=== PATIENT | female | born 1975 | race Caucasian/White ===

== ENCOUNTER → 2016-08-01 | Outpatient (CLI) | payer BC, OTHER ==
[~2016-08-01] MED LIST: CLR10 PO; GABA-113 PO; METF500T5 PO; MULT-506 PO; ONDA4TAB46 PO; SUMA50TA15 PO; VALA500T39 PO; VITB2100; [UNRECOGNIZED DRUG - OTHER]
[2016-08-01 14:25] LABS: CHOLESTEROL/HDL RATIO 3.2
[2016-08-01 14:44] LABS: ESTIMATED AVERAGE GLUCOSE 154 mg/dl; HA1C FLAG Normal (Normal)
== END | disposition home or self-care (01) ==
LOC: C.LABMFLN 10:47
PROVIDERS: ATTEND Internal Medicine Endocrinology, Diabetes & Metabolism
DX: E10.9 Type 1 diabetes mellitus without complications (principal); E78.5 Hyperlipidemia, unspecified

== ENCOUNTER → 2016-11-21 | Outpatient (CLI) | payer BC, OTHER ==
[2016-11-21 14:48] LABS: ALT/SGPT 20 U/L (12-78); AST/SGOT 12 U/L (15-37); BLOOD UREA NITROGEN 9 mg/dl (7-18); BUN/CREATININE RATIO 12.9 (10-20); CALCIUM 9.1 mg/dl (8.5-10.1); CARBON DIOXIDE 32 mmol/L (21-32); CHLORIDE 105 mmol/L (98-107); CREATININE 0.72 mg/dl (0.60-1.20); GLUCOSE 104 mg/dl (70-99); POTASSIUM 4.3 mmol/L (3.5-5.1); SODIUM 142 mmol/L (136-145)
[2016-11-21 14:59] LABS: ALB/GLOB RATIO 0.9 (0.9-2); ALKALINE PHOSPHATASE 83 U/L (45-117); CHOLESTEROL 141 mg/dl (0-200); CHOLESTEROL/HDL RATIO 2.8; ESTIMATED AVERAGE GLUCOSE 183 mg/dl; HA1C FLAG Normal (Normal); HDL CHOLESTEROL 50 mg/dl; LDL CHOLESTEROL CALCULATED 62 mg/dl; TRIGLYCERIDES 146 mg/dl (0-150); VERY LOW DENSITY LIPOPROT CALC 29 mg/dl
== END | disposition home or self-care (01) ==
LOC: C.LAB1850 12:41
PROVIDERS: ATTEND Physician Assistant
DX: E78.5 Hyperlipidemia, unspecified (principal); E10.9 Type 1 diabetes mellitus without complications

== ENCOUNTER → 2017-11-25 | Outpatient (CLI) | payer BC, OTHER ==
[2017-11-25 18:06] LABS: ALBUMIN 3.2 gm/dl (3.4-5.0); ALT/SGPT 14 U/L (12-78); AST/SGOT 13 U/L (15-37); BLOOD UREA NITROGEN 14 mg/dl (7-18); CALCIUM 8.2 mg/dl (8.5-10.1); CARBON DIOXIDE 25 mmol/L (21-32); CHOLESTEROL 151 mg/dl (0-200); CREATININE 0.77 mg/dl (0.60-1.20); GLUCOSE 136 mg/dl (70-99); SODIUM 138 mmol/L (136-145)
[2017-11-25 18:17] LABS: ALKALINE PHOSPHATASE 70 U/L (45-117); LDL CHOLESTEROL CALCULATED 75 mg/dl
== END | disposition home or self-care (01) ==
LOC: C.LABMFLN 12:14
PROVIDERS: ATTEND Physician Assistant
DX: E10.9 Type 1 diabetes mellitus without complications (principal)

== ENCOUNTER 2018-10-06 09:06 | Inpatient (IN) ==
[2018-10-06] MEDS ORDERED: OPTIRAY 320 125ml IV PRN (09:23)
--- NOTE | 2018-10-06 09:34 | CT Scan Report ---
CT head/brain wo con CLINICAL HISTORY: 43 years-old Female with Stroke evaluation . Acute strokelike symptoms TECHNIQUE: Multiple axial CT images of the head were obtained without contrast. A dose lowering tech nique was utilized adhering to the principles of ALARA. CT DOSE: 537.48 mGy.cm COMPARISON: CT head 01/28/2013. FINDINGS: No acute intracranial hemorrhage, midline shift, intracranial mass, hydrocephalus, territorial ischem ia or abnormal extra-axial collection. The calvarium is intact. Moderate mucosal thickening about the left maxillary sinus with mild mucosa l thickening of the right maxillary sinus and mild to moderate mucosal thickening of the ethmoid air cells. Mastoid air cells are clear. Soft tissues are unremarkable. A tube noted about the right naris . IMPRESSION: No acute intracranial abnormality. The above report was generated using voice recognition software. It may contain grammatical, syntax o r spelling errors. Electronically signed by: Darius Butts M.D. 10/06/2018 9:32 AM
--- NOTE | 2018-10-06 09:44 | CT Scan Report ---
HEAD & NECK CTA HISTORY: Altered mental status. TECHNIQUE: Multiaxial CT images of the head were performed following the intravenous administration o f contrast to evaluate the major cerebral vessels. Multiaxial CT images of the neck were also perform ed following the intravenous administration of contrast to evaluate the major cervical vessels. Maxim um intensity projection images were also obtained. A dose lowering technique was utilized adhering to the principles of ALARA. COMPARISON: Head CT 10/06/2018. FINDINGS: A right-sided nasopharyngeal airway is noted. Visualized intracranial internal carotid arteries, dist al vertebral arteries, and basilar artery are widely patent. There is no significant stenosis, occlus ion, or aneurysm seen within the bilateral ACAs, MCAs, or pit shovel operator. The major dural venous sinuses are pa tent. Moderate mucosal thickening within the left maxillary sinus and left ethmoid air cells. The aortic arch and proximal great vessels are widely patent. There is no significant stenosis, occ lusion, or dissection identified within the bilateral common carotid, internal carotid, or vertebral arteries. Patchy and linear densities within the upper lobes favor atelectasis. IMPRESSION: 1. No significant stenosis, occlusion, or aneurysm within the [place]. 2. No significant stenosis, occlusion, or dissection identified within the carotid or vertebral arter ies. 3. Patchy and linear densities within the upper lobes are nonspecific but favor atelectasis. A pneumo linnea could also have a similar appearance. 4. Sinus disease as described above. Electronically signed by: Jersey Schuler M.D. 10/06/2018 9:43 AM
--- NOTE | 2018-10-06 09:44 | CT Scan Report ---
HEAD & NECK CTA HISTORY: Altered mental status. TECHNIQUE: Multiaxial CT images of the head were performed following the intravenous administration o f contrast to evaluate the major cerebral vessels. Multiaxial CT images of the neck were also perform ed following the intravenous administration of contrast to evaluate the major cervical vessels. Maxim um intensity projection images were also obtained. A dose lowering technique was utilized adhering to the principles of ALARA. COMPARISON: Head CT 10/06/2018. FINDINGS: A right-sided nasopharyngeal airway is noted. Visualized intracranial internal carotid arteries, dist al vertebral arteries, and basilar artery are widely patent. There is no significant stenosis, occlus ion, or aneurysm seen within the bilateral ACAs, MCAs, or senior brand manager. The major dural venous sinuses are pa tent. Moderate mucosal thickening within the left maxillary sinus and left ethmoid air cells. The aortic arch and proximal great vessels are widely patent. There is no significant stenosis, occ lusion, or dissection identified within the bilateral common carotid, internal carotid, or vertebral arteries. Patchy and linear densities within the upper lobes favor atelectasis. IMPRESSION: 1. No significant stenosis, occlusion, or aneurysm within the [place]. 2. No significant stenosis, occlusion, or dissection identified within the carotid or vertebral arter ies. 3. Patchy and linear densities within the upper lobes are nonspecific but favor atelectasis. A pneumo linnea could also have a similar appearance. 4. Sinus disease as described above. Electronically signed by: Jersey Schuler M.D. 10/06/2018 9:43 AM
[2018-10-06 09:53] LABS: iSTAT Creatinine 0.6 mg/dl (0.6-1.3); iSTAT Hemoglobin 10.5 g/dl (12.0-16.0); iSTAT Ionized Calcium 1.14 mmol/l (1.12-1.32); iSTAT Potassium 4.1 mEq/L (3.3-5.0)
[2018-10-06 09:54] LABS: Basophils # (auto) 0.01 K/uL (0-0.2); Basophils % (auto) 0.2 %; Eosinophils # (auto) 0.11 K/uL (0-0.5); Eosinophils % (auto) 2.5 %; Hematocrit (blood only) 34.4 % (37-47); Hemoglobin 11.6 g/dL (12.0-16.0); Immature Granulocytes # (auto) 0.03 K/uL (0.00-0.02); Immature Granulocytes % (auto) 0.7 %; Lymphocytes # (auto) 1.94 K/uL (1.2-3.4); Lymphocytes % (auto) 43.7 %; Mean Corpuscular Hgb Conc 33.7 g/dL (32-36); Mean Corpuscular Volume 88.9 fL (80-100); Mean Platelet Volume 8.9 fL (7.4-10.4); Monocytes # (auto) 0.39 K/uL (0.11-0.59); Monocytes % (auto) 8.8 %; Neutrophils # (auto) 1.96 K/uL (1.4-6.5); Neutrophils % (auto) 44.1 %; Platelet Count 197 K/uL (130-400); RDW Standard Deviation 38.4 fL (36.4-46.3); Red Blood Count 3.87 M/uL (4.2-5.4); White Blood Count 4.44 K/uL (4.8-10.8)
[2018-10-06 10:06] LABS: Partial Thromboplastin Ratio 0.9; Partial Thromboplastin Time 23.9 Seconds (21.0-31.0); Prothrombin Time 10.3 Seconds (9.0-12.0)
[2018-10-06 10:10] LABS: HCO3 ABG 26 mmol/L (19-24); Oxygen Saturation ABG 99.7 % (90-95); PCO2 ABG 51 mmHg (35-46); PO2 ABG 245 mm/Hg (80-95); pH ABG 7.32 (7.35-7.45)
[2018-10-06 10:11] LABS: Alanine Aminotransferase 11 U/L (12-78); Albumin Level 2.6 gm/dl (3.4-5.0); Aspartate Aminotransferase 7 U/L (15-37); Blood Urea Nitrogen 12 mg/dl (7-18); Calcium 7.6 mg/dl (8.5-10.1); Carbon Dioxide 29 mmol/L (21-32); Chloride 106 mmol/L (98-107); Creatinine Clr Calc Pharmacy 117.6 ml/min; Est GFR (African American) 128.2; Est GFR (Non-African American) 110.6; Glucose 152 mg/dl (70-99); Magnesium 1.9 mg/dl (1.8-2.4); Potassium 4.1 mmol/L (3.5-5.1); Sodium 138 mmol/L (136-145)
[2018-10-06 10:11] LABS: Allen Test Pos (Pos)
[2018-10-06 10:16] LABS: Albumin Globulin Ratio 0.8 (0.9-2); Alkaline Phosphatase 61 U/L (45-117); Bilirubin,Total 0.2 mg/dl (0.2-1); Globulin 3.2 gm/dl (2.5-4.0); Total Protein 5.8 gm/dl (6.4-8.2); Troponin I < 0.015 ng/ml (0-0.045)
[2018-10-06] MEDS ORDERED: ASPIRIN 300 MG SUPP PR ONE (10:23)
--- NOTE | 2018-10-06 10:51 | XRay Report ---
XR chest 1V portable HISTORY: 43 years-old Female altered loc acutely altered mental status COMPARISON: [facility] 01/04/2014 TECHNIQUE: Portable AP view the chest FINDINGS: Cardiac silhouette appears be upper limits of normal in size. Lungs are hypoinflated with bronchovasc ular crowding. Mild right hemidiaphragm elevation with subsegmental bibasilar opacities. Bilateral in terstitial coarsening. There is no pneumothorax or large pleural effusion. There is a linear metallic density structure overlying the medial right lung base which may be external to the patient. Bones o f the chest appear grossly intact. IMPRESSION: 1. Hypoinflation with bronchovascular crowding and mild right hemidiaphragmatic elevation. 2. Bibasilar opacities are suggestive of atelectasis, pneumonitis could have a similar appearance. The above report was generated using voice recognition software. It may contain grammatical, syntax o r spelling errors. Electronically signed by: Darius Butts M.D. 10/06/2018 10:49 AM
--- NOTE | 2018-10-06 11:38 | History & Physical Report ---
Date of Service October 06, 2018 Assessment & Plan (1) Hypoxia: (2) Unresponsive: Pt presented to ER from outpatient surgical center for apnea and unresponsiveness. Patient had right carpal tunnel surgery today. It is reported she had propofol, Versed, fentanyl and woke up after procedure and then became apneic and unresponsive. Reported was given Narcan without any improvement. Reported that patient then had SBP 200 and was given labetalol and had BSG of 160s and was given half amp of dextrose and sent to ER. Upon ER arrival patient was unresponsive to painful stimuli, on nonrebreather with respirations of 16, and sats dropped to 80s off of nonrebreather with respirations of 9, BP: 137/70, P: 87. CTA head and neck unremarkable. Stroke alert was called and tele neurologist did not think was acute stroke and recommended aspirin and Keppra. ?medication induced, post ictal, conversion disorder, stroke -pt was initially to go to ICU, however upon ER transfer to ICU pt now alert and on 2L NC with sats 99% -tele to monitor -pending drug screen -MRI brain -initially npo with unresponsiveness, will monitor and if continued alertness will start on diet -Neurology consult appreciate recommendations -may need to consider psych consult (3) Seizure disorder: (4) Pseudoseizure: Outpatient records reviewed and report patient with diagnosis of pseudoseizures on previous neuro workup. Patient's reports now patient [place] and patient is on Vimpat. thinks last seizure was at least 6 months ago -monitor -seizure precautions -pending depakote level -monitor pt's alertness, if continued alert will resume home meds (5) Diabetes: A1c: 8.0 on 11/2017. On Lantus and Novolog sliding scale at home Reported pt BSG after surgery this morning was in 160's and she was given 1/2 amp dextrose at that time -Novolog Lantus sliding scale per protocol -A1c in am (6) Dyslipidemia: -if continued alertness will resume home meds (7) Recurrent headache: On Depakote for history of headaches -pending depakote level DVT Prophylaxis -SCDs Follows with Dr Kisha Ford for routine care Pt was seen with Dr Reynaga. See addendum History of Present Illness Chief Complaint: Unresponsive Primary Care Provider: Faheem Beard Pt is 43 y/o F with PMH diabetes on insulin, dyslipidemia, seizure disorder, pseudoseizure, recurrent headaches presented to ER from outpatient surgical center for apnea and unresponsiveness. Patient had right carpal tunnel surgery today. There is reported she had propofol, Versed, fentanyl. Reported patient woke up after procedure and then became apneic and unresponsive. Reported was given Narcan without any improvement. Reported that patient then had SBP 200 and was given labetalol and had BSG of 160s and was given half amp of dextrose and sent to ER. In ER arrival patient was unresponsive to painful stimuli, on nonrebreather with respirations of 16, and sats dropped to 80s off of nonrebreather with respirations of 9, BP: 137/70, P: 87. CTA head and neck unremarkable. Stroke alert was called and tele neurologist did not think was acute stroke and recommended aspirin and Keppra. Patient's reports that he believes patient has been taking her medications. He states he thinks his last seizure episode was approximately 6 months ago. He reports her normal seizure episodes are where she blacks out and has movements of body and last for approximately 20 minutes without loss control of bowel or bladder. He states in the past when this is occurred he has pinched her and she has responded to painful stimuli. Outpatient records reviewed and report patient with diagnosis of pseudoseizures on previous neuro workup. She is on Depakote for history of headaches. Patient's reports now patient follows with neurologist in [place]. [place] and patient is on Vimpat. Assessment reports approximately 1 month ago patient had outpatient surgery for left carpal tunnel and did not have any problems with anesthesia. He does not think that she drinks alcohol or uses any other drugs other than her prescriptions. He thinks that she took her morning medicines today. denies any recent illnesses or injuries with pt. Allergies Allergy/AdvReac Type Severity Reaction Status Date / Time niacin Allergy Unknown HIVES Verified 10/06/18 10:33 nortriptyline Allergy Unknown UNKOWN Verified 10/06/18 10:33 RXN, FROM PREOP ORDER aspirin AdvReac Unknown bloody nose Verified 10/06/18 10:33 Home Medications Home Medications Medication Instructions Recorded Confirmed Type atorvastatin 10 mg PO DAILY 10/06/18 10/06/18 History divalproex 500 mg PO BID 10/06/18 10/06/18 History esomeprazole magnesium [Nexium] 40 mg PO DAILY 10/06/18 10/06/18 History gabapentin 600 mg PO UD 10/06/18 10/06/18 History insulin aspart U-100 [Novolog 1 unit SUBCUT UD 10/06/18 10/06/18 History Flexpen U-100 Insulin] lacosamide [Vimpat] 150 mg PO BID 10/06/18 10/06/18 History loratadine 10 mg PO DAILY 10/06/18 10/06/18 History multivitamin 1 tab PO DAILY 10/06/18 10/06/18 History ondansetron HCl [Zofran] 4 mg PO DIRECTED PRN 10/06/18 10/06/18 History riboflavin (vitamin B2) 1,200 mg PO DAILY 10/06/18 10/06/18 History rizatriptan [Maxalt] 10 mg PO DIRECTED 10/06/18 10/06/18 History valacyclovir 500 mg PO BID 10/06/18 10/06/18 History Past Med/Surg History Family History Other Colorectal cancer Diabetes Hypertension Social History Preferred Language: [place] Communication Ability: Effective [place] Bench Required: No Beliefs That Will Affect Care: None Current Living Situation: Spouse and Family Other Information That Helps Us Care for You: No Feels Safe at Home: Yes Safety Concerns: Feels Safe At This Time Smoking Status: Former smoker Hx Alcohol Use: No Hx Substance Use: No Review of Systems Unobtainable due to reduced consciousness Physical Exam Vital Signs (Past 24 Hours): Last Vital Signs Temp 36.5 C 10/06/18 09:09 Pulse 88 10/06/18 10:52 Resp 16 10/06/18 10:52 BP 136/84 10/06/18 10:41 Pulse Ox 100 10/06/18 10:52 Physical Exam: General: obese, pt unresponsive Head: normocephalic, atraumatic Eyes: PERRL, does not blink with touching of eyelids, manual opening of eyelid eye movement with downward gaze then random eye movements. conjunctiva non- injected, anicteric ENT: normal inspection external ears, nose, mucous membranes moist Neck: supple, trachea midline Lungs: clear, on non-breather with respirations 14, O2 sats: 100% CV: RRR, no murmur Abd: normal BS, soft, protuberant Ext: no cyanosis or erythema Neuro: pt unresponsive to painful stimuli of sternal rub, pinching of fingernail beds and toenail beds Skin: warm, dry Results & Data Laboratory Results Short CBC 10/06/18 Range/Units 09:38 WBC 4.44 L (4.8-10.8) K/uL Hgb 11.6 L (12.0-16.0) g/dL Hct 34.4 L (37-47) % Plt Count 197 (130-400) K/uL BMP 10/06/18 09:38 Sodium 138 Potassium 4.1 Chloride 106 Carbon Dioxide 29 BUN 12 Creatinine 0.63 Glucose 152 H Calcium 7.6 L Cardiac Enzymes 10/06/18 Range/Units 09:38 Troponin I < 0.015 (0-0.045) ng/ml Liver Function 10/06/18 Range/Units 09:38 Total Bilirubin 0.2 (0.2-1) mg/dl AST 7 L (15-37) U/L ALT 11 L (12-78) U/L Alkaline Phosphatase 61 (45-117) U/L Albumin 2.6 L (3.4-5.0) gm/dl Diagnostic Findings CXR: IMPRESSION: 1. Hypoinflation with bronchovascular crowding and mild right hemidiaphragmatic elevation. 2. Bibasilar opacities are suggestive of atelectasis, pneumonitis could have a similar appearance. CT HEAD: IMPRESSION: No acute intracranial abnormality. CTA HEAD & NECK: IMPRESSION: 1. No significant stenosis, occlusion, or aneurysm within the [place]. 2. No significant stenosis, occlusion, or dissection identified within the c arotid or vertebral arteries. 3. Patchy and linear densities within the upper lobes are nonspecific but favor atelectasis. A pneumonia could also have a similar appearance. 4. Sinus disease as described above. ECG Rate (beats per minute): 81 Rhythm: normal sinus Supervising Physician Co-Signing Physician Notes Patient is a 43-year-old female with multiple comorbidities including seizure disorder/pseudoseizures and other problems presented with respiratory failure and altered mental status after having right carpal tunnel surgery today. On presentation patient presented with hypertensive urgency while in ED which improved. Patient initially was unresponsive to sternal rub, pain stimulus. She was requiring nonrebreather to maintain her saturation. Patient was evaluated by telemetry stroke neurologist who believed that patient does not seem to have an acute stroke. He recommended aspirin and Keppra. CT head, head and neck CTA are noncontributory. Patient had her last seizure episode 6 months ago as per the family. Please review HPI for complete presentation. On exam patient is unresponsive, no normocephalic atraumatic, does not respond to pain, verbal stimulus. Currently on nonrebreather, lungs are clear to auscultation,S1, S2, no murmur, abdomen is soft nontender, unable to perform complete neuro exam secondary to patient's mental status, extremities no pedal edema, cyanosis. Patient is admitted for management of Altered Mental Status. DD: PostIctal, Medication induced, Conversion disorder. Plan to get MRI brain, Neuro Checks, NPO for now, Respiratory support, seizure precautions, Neurology Consulted. Check Depakote levels. Hold all sedative meds as able. Aspiration/Fall precautions. Low threshold for Intubation. Further management based on MRI results. I personally reviewed the record. Patient is interviewed and examined at bedside. Patient's care is coordinated with Racquel Harley DECORATIVE ENGRAVER. Please refer to the documentation above for details of patient's presentation and for discussion of other issues.
--- NOTE | 2018-10-06 13:54 | Critical Care Consultation ---
Date of Consultation October 06, 2018 Assessment & Plan (1) Pseudoseizure: Impression: 1. Pseudoseizure versus conversion syndrome, patient does not have any clinical evidence of seizure or postictal syndrome, her bicarb has been maintained, no witnessed convulsion, and her altered mental status resolved spontaneously, I would favor conversion syndrome. Unfortunately there is no specific treatment for it. And the patient cannot control it spontaneously. 2. Diabetes, glucose controlled. #3 Postop Right Carpal Tunnel surgery, improving as expected. Plan: 1. Continue her current medications including Depakote and Lamictal. 2. Start oral intake. 3. No need for BiPAP during the daytime. 4. wean the oxygen to off as possible. 5. continue with CPAP/BiPAP nocturnally. 6. Pain control, caution with narcotics. 7. DVT prophylaxis. 8. Ambulate the patient if possible. 9. Discussed with the staff and with the ER staff, and details. 10. Transfer to [facility]. Thank you for the kind referral, critical care time spent with the patient was 45 minutes. History of Present Illness Reason for Consultation: Obtundation Requesting Physician: Dr. Allred Attending Physician: Hue López MD History of Present Illness Dear Dr. Allred: Thank you for your kind referral Mrs. Almanzar to critical care service. This is 43-year-old female with history of diabetes, morbid obesity, dyslipidemia, seizure disorder, pseudoseizure as well, presented to the surgical center for right-sided carpal tunnel surgery. The patient postop was difficult to arouse, she received during her procedure propofol and fentanyl according to the records, and the patient was transferred to the ED for further monitoring. In the ED, after discussion with Dr. Medina, the patient apparently was unable to be aroused. Underwent extensive workup including her glucose level which was normal, ABG was acceptable and did not show significant hypercapnia. The patient was continued to be difficult to arouse. EKG, imaging did not reveal any abnormality, the patient was stroke alert as well and was not deemed to have any cerebrovascular event. When I interviewed the patient after she is being admitted to the ICU, she started waking up, following commands answering question, she did have a nasal trumpet which I removed, place her only on nasal cannula, she does not recall the event, she did not have any events in the past similar to this but she did not have any surgery with deep sedation. She was able to move her 4 extremities although she did that earlier. The patient was able to follow commands, she appeared to be able to protect her airways and she was placed only on nasal cannula. She is fully awake. She has been taken Depakote and Lamictal for seizure, it was unsure whether it is seizure or pseudoseizure. Allergies Allergy/AdvReac Type Severity Reaction Status Date / Time niacin Allergy Unknown HIVES Verified 10/06/18 10:33 nortriptyline Allergy Unknown UNKOWN Verified 10/06/18 10:33 RXN, FROM PREOP ORDER aspirin AdvReac Unknown bloody nose Verified 10/06/18 10:33 Home Medications Home Medications Medication Instructions Recorded Confirmed Type atorvastatin 10 mg PO DAILY 10/06/18 10/06/18 History divalproex 500 mg PO BID 10/06/18 10/06/18 History esomeprazole magnesium [Nexium] 40 mg PO DAILY 10/06/18 10/06/18 History gabapentin 600 mg PO UD 10/06/18 10/06/18 History insulin aspart U-100 [Novolog 1 unit SUBCUT UD 10/06/18 10/06/18 History Flexpen U-100 Insulin] lacosamide [Vimpat] 150 mg PO BID 10/06/18 10/06/18 History loratadine 10 mg PO DAILY 10/06/18 10/06/18 History multivitamin 1 tab PO DAILY 10/06/18 10/06/18 History ondansetron HCl [Zofran] 4 mg PO DIRECTED PRN 10/06/18 10/06/18 History riboflavin (vitamin B2) 1,200 mg PO DAILY 10/06/18 10/06/18 History rizatriptan [Maxalt] 10 mg PO DIRECTED 10/06/18 10/06/18 History valacyclovir 500 mg PO BID 10/06/18 10/06/18 History Patient History Medical History Dyslipidemia (Chronic) Diabetes (Chronic) Recurrent headache (Chronic) Seizure disorder (Chronic) Pseudoseizure (Chronic) Surgical History History of hernia repair (Chronic) History of tubal ligation (Chronic) History of carpal tunnel surgery (Chronic) Family History Other Colorectal cancer Diabetes Hypertension Social History Preferred Language: [place] Communication Ability: Effective Bankruptcy Manager Required: No Beliefs That Will Affect Care: None Current Living Situation: Spouse and Family Other Information That Helps Us Care for You: No Feels Safe at Home: Yes Safety Concerns: Feels Safe At This Time Smoking Status: Former smoker Hx Alcohol Use: No Hx Substance Use: No Review of Systems Review of system was limited, however the patient chief complaint was pain in her right wrist which is understandable postop. The rest of her symptoms were unremarkable, denies any shortness of breath, no chest pain, no sputum production, no cough, no abdominal pain, no nausea, does not feel any pain in her joints, appears to be in a good mood, and denies any visual disturbances. Does not have any tremor or shakiness. No neuro symptoms. Physical Exam Vital Signs (Past 24 Hours): Last Vital Signs Temp 36.9 C 10/06/18 12:46 Pulse 85 10/06/18 12:46 Resp 21 10/06/18 12:46 BP 169/65 H 10/06/18 12:46 Pulse Ox 99 10/06/18 12:46 Physical Exam: Patient vital signs are stable, S1-S2 regular rate and rhythm, her O2 saturation is 96%, no JVD, lungs are clear, the patient is morbidly obese, abdomen is benign, no edema in the periphery, no rash, no oral lesion, nasal trumpet was removed without any difficulty, neurologically she is intact following commands moving 4 extremities, right wrist postop surgically wrapped, no evidence of swelling or induration at this site. Results & Data Laboratory Results Labs were reviewed personally which showed stable CBC, ABG was 7.32/50 1245, and the BMP is normal, glucose is normal LFTs are normal. Diagnostic Findings Which showed bibasilar atelectasis. Negative head CT for intracranial catastrophe. No evidence of occlusion in the [place].
[2018-10-06] MEDS ORDERED: GLUCAGON FOR INJ 1 MG VIAL SQ PRN (14:04)
[2018-10-06] MEDS ORDERED: GLUCOSE 10 TABS/TUBE PO PRN (14:04)
[2018-10-06] MEDS ORDERED: DEXTROSE 50% 50 ML SYRINGE IV PRN (14:04)
[2018-10-06] MEDS ORDERED: INSULIN GLARGINE SOLOSTAR 100 UNITS/ML 3 ML PEN SC SCH (14:04)
[2018-10-06] MEDS ORDERED: CARBOHYDRATES FOR HYPOGLYCEMIA PO PRN (14:04)
[2018-10-06] MEDS ORDERED: GLUCOSE 40% GEL 15 GM TUBE PO PRN (14:04)
--- NOTE | 2018-10-06 14:19 | Neurology Consultation ---
Date of Consultation October 06, 2018 Assessment & Plan (1) Altered mental status: 1. depakote level ordered but not resulted 2. continue Vimpat 150 mg BID depakote 500 mg BID, also taking Gabepentin 600 mg as ordered 3. seizure vs pseudo seizure vs reaction to anaesthesia 4. PT/OT for any discharge needed 5. discharge to home and close follow up with Dr Bajwa -neurology [place] 6. a febrile - lung finding likely atelectasis 7. will be available for any further questions concerns. Supervising Physician Co-Signing Physician Notes I have seen and discussed above patient with Dr Delvis Stiles. Patient was seen and examined. at bedside. Patient admitted for decreased LOC s/p CTS surgery earlier today. She recieved Propofol, Versed, and Fentanyl. Patient awake and alert on examine. Comprehension intact. EOMI. Pupils equal and reactive. Tongue midline no abrasion. Speech is clear. On 2L NC. Appears comfortable. Per chart review patient followed with [facility] for history of non epileptic seizures and migriane headaches. Now follows with outside neurologist. Is on Vimpat 150 mg BID, Depakote 500 mg BID, and Neurontin 600/600/1200 daily. Unclear etiology of spell earlier. Possibly secondary to sedative agents used during surgery. Patient improved. Recommend to continue home medications. No further neurology work up necessary. Ok to discharge when stable from medical standpoint. Patient reports having follow up with her Neurologist (Dr. Bajwa) tomorrow at 10 AM. History of Present Illness Reason for Consultation: unresponsiveness, hx pseudoseizures Requesting Physician: Hue López MD Attending Physician: Hue López MD History of Present Illness Divine is a 43 year old female PMH DM on insulin, HLD, seizure disorder, pseudoseizure, migraines. Was brought to ED from outpatient surgical center for apnea and unresponsiveness. According to she was there for R carpal tunnel surgery. She was given propofol, Versed, fentanyl. He was told the surgery went well and then she was apneic and unresponsive Narcan was given without improvement. She had a SBP 200 and was given labetalol and had BSG of 160s and was given half amp of dextrose and sent to ER. She was unresponsive to painful stimuli, on nonrebreather with respirations of 16, and sats dropped to 80s off of nonrebreather with respirations of 9, BP: 137/70, P: 87. CTA head and neck unremarkable. Stroke alert was called but recommended aspirin and Keppra. She states she has been taking her medications and reports the last seizure episode was approximately 6 months ago. He reports her normal seizure episodes are where she blacks out and has movements of body and last for approximately 20 seconds. She states sometimes she bites her tongue and sometimes she wets herself. She has a diagnosis of pseudoseizures on previous neuro workup. She is on Depakote for history of headaches. Patient's reports now patient follows with neurologist in [place] Dr. Long and patient is on Vimpat. Assessment reports approximately 1 month ago patient had outpatient surgery for left carpal tunnel and did not have any problems with anesthesia. She states she had a migraine last night but took tylenol and woke up without one this am. She states she has a current headache but she has not taken anything for it. They are pounding and last 1-2 hours. She sometimes takes Maxalt for the migriane. She is a non smoker minimal EtoH use, 2 adult children. Allergies Allergy/AdvReac Type Severity Reaction Status Date / Time niacin Allergy Unknown HIVES Verified 10/06/18 10:33 nortriptyline Allergy Unknown UNKOWN Verified 10/06/18 10:33 RXN, FROM PREOP ORDER aspirin AdvReac Unknown bloody nose Verified 10/06/18 10:33 Home Medications Home Medications Medication Instructions Recorded Confirmed Type atorvastatin 10 mg PO DAILY 10/06/18 10/06/18 History divalproex 500 mg PO BID 10/06/18 10/06/18 History esomeprazole magnesium [Nexium] 40 mg PO DAILY 10/06/18 10/06/18 History gabapentin 600 mg PO UD 10/06/18 10/06/18 History insulin aspart U-100 [Novolog 1 unit SUBCUT UD 10/06/18 10/06/18 History Flexpen U-100 Insulin] insulin glargine 55 unit SUBCUT HS 10/06/18 10/06/18 History lacosamide [Vimpat] 150 mg PO BID 10/06/18 10/06/18 History loratadine 10 mg PO DAILY 10/06/18 10/06/18 History multivitamin 1 tab PO DAILY 10/06/18 10/06/18 History ondansetron HCl [Zofran] 4 mg PO DIRECTED PRN 10/06/18 10/06/18 History riboflavin (vitamin B2) 1,200 mg PO DAILY 10/06/18 10/06/18 History rizatriptan [Maxalt] 10 mg PO DIRECTED 10/06/18 10/06/18 History valacyclovir 500 mg PO BID 10/06/18 10/06/18 History Patient History Medical History Dyslipidemia (Chronic) Diabetes (Chronic) Recurrent headache (Chronic) Seizure disorder (Chronic) Pseudoseizure (Chronic) Surgical History History of hernia repair (Chronic) History of tubal ligation (Chronic) History of carpal tunnel surgery (Chronic) Family History Other Colorectal cancer Diabetes Hypertension Social History Preferred Language: Divehi Communication Ability: Effective Correspondent Required: No Beliefs That Will Affect Care: None Current Living Situation: Spouse and Family Other Information That Helps Us Care for You: No Feels Safe at Home: Yes Safety Concerns: Feels Safe At This Time Smoking Status: Former smoker Hx Alcohol Use: No Hx Substance Use: No Physical Exam Vital Signs (Past 24 Hours): Last Vital Signs Temp 36.9 C 10/06/18 12:46 Pulse 85 10/06/18 12:46 Resp 21 10/06/18 12:46 BP 169/65 H 10/06/18 12:46 Pulse Ox 99 10/06/18 12:46 Physical Exam: Constitutional: appearance over nourished Ears, Nose, Mouth and Throat: mucous membranes moist, no injection and skin normal, eyes normal Cardiovascular: normal S-1 and S-2 and regular rate and rhythm Respiratory: clear to auscultation (CTA) and no rales, ronchi or wheeze Musculoskeletal: no peripheral edema Skin: no stigmata of neurocutaneous disease noted and normal and intact Eyes: extraocular muscles intact (EOMI) and pupils equal, round and reactive to light (PERRL) NEUROLOGIC EXAMINATION: Mental status: Alert and interactive Oriented to full date and location Oriented to person Speech fluent with no evidence of aphasia Cranial Nerves smile eye brow raise symmetric tongue midline with no abrasions or lacerations Reflexes: Deep tendon reflexes were symmetrical and graded 2/5. Sensory: intact to light and cool touch Coordination: finger to nose with no bi pass Gait/Stance: Posture normal lying in bed, blind drawn lights out Motor: Negative for pronator drift of out stretched arms with eyes closed. 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, left no tested due to recent surgery CTS, hip flex plantar flex ext 5/5 bilaterally Results & Data Laboratory Results Abnormal lab results 10/06/18 10/06/18 10/06/18 Range/Units 09:12 09:38 09:38 WBC 4.44 L (4.8-10.8) K/uL RBC 3.87 L (4.2-5.4) M/uL Hgb 11.6 L (12.0-16.0) g/dL POC Hgb (12.0-16.0) g/dl Hct 34.4 L (37-47) % POC Hct (37-47) % Immature Gran # (Auto) 0.03 H (0.00-0.02) K/uL ABG pH (7.35-7.45) ABG pCO2 (35-46) mmHg ABG pO2 (80-95) mm/Hg ABG HCO3 (19-24) mmol/L ABG O2 Saturation (90-95) % POC Chloride (101-112) mEq/L Glucose 152 H (70-99) mg/dl POC Glucose 152 H (70-99) POC Glucose (other) (70-99) mg/dl Calcium 7.6 L (8.5-10.1) mg/dl AST 7 L (15-37) U/L ALT 11 L (12-78) U/L Total Protein 5.8 L (6.4-8.2) gm/dl Albumin 2.6 L (3.4-5.0) gm/dl Albumin/Globulin Ratio 0.8 L (0.9-2) 10/06/18 10/06/18 10/06/18 Range/Units 09:40 09:59 12:33 WBC (4.8-10.8) K/uL RBC (4.2-5.4) M/uL Hgb (12.0-16.0) g/dL POC Hgb 10.5 L (12.0-16.0) g/dl Hct (37-47) % POC Hct 31 L (37-47) % Immature Gran # (Auto) (0.00-0.02) K/uL ABG pH 7.32 L (7.35-7.45) ABG pCO2 51 H (35-46) mmHg ABG pO2 245 H (80-95) mm/Hg ABG HCO3 26 H (19-24) mmol/L ABG O2 Saturation 99.7 H (90-95) % POC Chloride 99 L (101-112) mEq/L Glucose (70-99) mg/dl POC Glucose 187 H (70-99) POC Glucose (other) 153 H (70-99) mg/dl Calcium (8.5-10.1) mg/dl AST (15-37) U/L ALT (12-78) U/L Total Protein (6.4-8.2) gm/dl Albumin (3.4-5.0) gm/dl Albumin/Globulin Ratio (0.9-2) 10/06/ Range/Units 14:22 WBC (4.8-10.8) K/uL RBC (4.2-5.4) M/uL Hgb (12.0-16.0) g/dL POC Hgb (12.0-16.0) g/dl Hct (37-47) % POC Hct (37-47) % Immature Gran # (Auto) (0.00-0.02) K/uL ABG pH (7.35-7.45) ABG pCO2 (35-46) mmHg ABG pO2 (80-95) mm/Hg ABG HCO3 (19-24) mmol/L ABG O2 Saturation (90-95) % POC Chloride (101-112) mEq/L Glucose (70-99) mg/dl POC Glucose 193 H (70-99) POC Glucose (other) (70-99) mg/dl Calcium (8.5-10.1) mg/dl AST (15-37) U/L ALT (12-78) U/L Total Protein (6.4-8.2) gm/dl Albumin (3.4-5.0) gm/dl Albumin/Globulin Ratio (0.9-2) Diagnostic Findings CT head- No acute intracranial abnormality. CTA head and neck -No significant stenosis, occlusion, or aneurysm within the [place]. No significant stenosis, occlusion, or dissection identified within the carotid or vertebral arteries. Patchy and linear densities within the upper lobes are nonspecific but favor atelectasis. A pneumonia could also have a similar appearance. Sinus disease as described above. CXR-Hypoinflation with bronchovascular crowding and mild right hemidiaphragmatic elevation. Bibasilar opacities are suggestive of atelectasis, pneumonitis could have a similar appearance. (1) Altered mental status Altered mental status type: unspecified Qualified Code(s): R41.82 - Altered mental status, unspecified
--- NOTE | 2018-10-06 15:15 | Emergency Department Note ---
Entered by Briana Turner acting as a scribe for Manuel Medina MD History of Present Illness General Chief complaint: Unresponsive Stated complaint: unresponsive Source: family, EMS and other (nursing staff) Limitations: altered mental status (unresponsiveness) History of Present Illness Provider complaint: unresponsiveness Onset (ago): hour(s) (today) Location: left and right Quality: + other (unresponsiveness) The patient is a 43 year old female who presents to the Emergency Room with unresponsiveness today. Limited HPI secondary to unresponsiveness. Per nursing staff, the patient had carpel tunnel surgery this morning but was then unresponsive. Nursing staff states that the surgery went well. The patient had Propofol, Fentanyl, and Versed. Nursing staff states that the patient also had Narcan. EMS states that the patient woke up then went unresponsive and was apneic for 10 minutes. EMS states that the patient's BSG was 166. Nursing staff states that the patient has a history of diabetes and a seizure disorder but has not had a seizure for over 6 months. Per nursing staff, the patient has not been incontinent. Her family states that the patient has had "blackout out" spells before and had her license suspended for a year but then was doing well. Her family states that the patient usually does not stop breathing with seizures. Home Medications Home Medications Medication Instructions Recorded Confirmed Type atorvastatin 10 mg PO DAILY 10/06/18 10/06/18 History divalproex 500 mg PO BID 10/06/18 10/06/18 History esomeprazole magnesium [Nexium] 40 mg PO DAILY 10/06/18 10/06/18 History gabapentin 600 mg PO UD 10/06/18 10/06/18 History insulin aspart U-100 [Novolog 1 unit SUBCUT UD 10/06/18 10/06/18 History Flexpen U-100 Insulin] insulin glargine 55 unit SUBCUT HS 10/06/18 10/06/18 History lacosamide [Vimpat] 150 mg PO BID 10/06/18 10/06/18 History loratadine 10 mg PO DAILY 10/06/18 10/06/18 History multivitamin 1 tab PO DAILY 10/06/18 10/06/18 History ondansetron HCl [Zofran] 4 mg PO DIRECTED PRN 10/06/18 10/06/18 History riboflavin (vitamin B2) 1,200 mg PO DAILY 10/06/18 10/06/18 History rizatriptan [Maxalt] 10 mg PO DIRECTED 10/06/18 10/06/18 History valacyclovir 500 mg PO BID 10/06/18 10/06/18 History Allergies Allergy/AdvReac Type Severity Reaction Status Date / Time niacin Allergy Unknown HIVES Verified 10/06/18 10:33 nortriptyline Allergy Unknown UNKOWN Verified 10/06/18 10:33 RXN, FROM PREOP ORDER aspirin AdvReac Unknown bloody nose Verified 10/06/18 10:33 Past Med/Surg History Medical History Dyslipidemia (Chronic) Diabetes (Chronic) Recurrent headache (Chronic) Seizure disorder (Chronic) Pseudoseizure (Chronic) Surgical History History of hernia repair (Chronic) History of tubal ligation (Chronic) History of carpal tunnel surgery (Chronic) Family History Other Colorectal cancer Diabetes Hypertension Social History Preferred Language: Swedish Communication Ability: Effective 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 Physical Exam Vital Signs Vital Signs - 24 hr 10/06/18 09:09 10/06/18 09:10 10/06/18 09:31 Temperature 36.5 C Temperature Source Oral Sepsis Recent Fever Within 48 Hours No Sepsis Action Taken by Nursing No Action Required Pulse Rate 87 87 Pulse Rate [Apical] Pulse Rate from SpO2 Sensor 88 Pulse Rhythm [Apical] Pulse Strength [Apical] Respiratory Rate 9 L 22 150 H Respiratory Effort / Characteristics Respiratory Depth Shallow Blood Pressure 137/70 Blood Pressure [Left Arm] Blood Pressure Mean 92 Blood Pressure Mean [Left Arm] Pulse Oximetry 85 L 85 L Oxygen Delivery Method Room Air Oxygen Flow Rate 10/06/18 09:33 10/06/18 09:40 10/06/18 09:47 Temperature Temperature Source Sepsis Recent Fever Within 48 Hours Sepsis Action Taken by Nursing Pulse Rate 87 86 87 Pulse Rate [Apical] 86 Pulse Rate from SpO2 Sensor 87 87 87 Pulse Rhythm [Apical] Regular Pulse Strength [Apical] Normal Respiratory Rate 17 19 15 Respiratory Effort / Characteristics Non-Labored Spontaneous Respiratory Depth Shallow Blood Pressure 137/70 135/74 Blood Pressure [Left Arm] 137/70 Blood Pressure Mean 92 94 Blood Pressure Mean [Left Arm] 92 Pulse Oximetry 85 L 99 99 Oxygen Delivery Method Non-rebreather Oxygen Flow Rate 15 10/06/18 09:50 10/06/18 09:52 10/06/18 10:00 Temperature Temperature Source Sepsis Recent Fever Within 48 Hours Sepsis Action Taken by Nursing Pulse Rate 88 88 87 Pulse Rate [Apical] Pulse Rate from SpO2 Sensor 87 88 88 Pulse Rhythm [Apical] Pulse Strength [Apical] Respiratory Rate 21 20 18 Respiratory Effort / Characteristics Respiratory Depth Blood Pressure 124/78 Blood Pressure [Left Arm] Blood Pressure Mean 93 Blood Pressure Mean [Left Arm] Pulse Oximetry 100 100 100 Oxygen Delivery Method Oxygen Flow Rate 10/06/18 10:02 10/06/18 10:10 10/06/18 10:11 Temperature Temperature Source Sepsis Recent Fever Within 48 Hours Sepsis Action Taken by Nursing Pulse Rate 86 88 94 H Pulse Rate [Apical] Pulse Rate from SpO2 Sensor 86 88 94 H Pulse Rhythm [Apical] Pulse Strength [Apical] Respiratory Rate 15 15 16 Respiratory Effort / Characteristics Respiratory Depth Blood Pressure 136/72 143/90 H Blood Pressure [Left Arm] Blood Pressure Mean 93 107 Blood Pressure Mean [Left Arm] Pulse Oximetry 100 99 100 Oxygen Delivery Method Oxygen Flow Rate 10/06/18 10:12 10/06/18 10:20 10/06/18 10:22 Temperature Temperature Source Sepsis Recent Fever Within 48 Hours Sepsis Action Taken by Nursing Pulse Rate 89 87 85 Pulse Rate [Apical] Pulse Rate from SpO2 Sensor 89 87 86 Pulse Rhythm [Apical] Pulse Strength [Apical] Respiratory Rate 14 18 17 Respiratory Effort / Characteristics Respiratory Depth Blood Pressure 113/90 Blood Pressure [Left Arm] Blood Pressure Mean 97 Blood Pressure Mean [Left Arm] Pulse Oximetry 100 100 99 Oxygen Delivery Method Oxygen Flow Rate 10/06/18 10:30 10/06/18 10:40 10/06/18 10:41 Temperature Temperature Source Sepsis Recent Fever Within 48 Hours Sepsis Action Taken by Nursing Pulse Rate 89 91 H 89 Pulse Rate [Apical] Pulse Rate from SpO2 Sensor 89 91 H 89 Pulse Rhythm [Apical] Pulse Strength [Apical] Respiratory Rate 17 17 14 Respiratory Effort / Characteristics Respiratory Depth Blood Pressure 136/84 Blood Pressure [Left Arm] Blood Pressure Mean 101 Blood Pressure Mean [Left Arm] Pulse Oximetry 100 99 99 Oxygen Delivery Method Oxygen Flow Rate 10/06/18 10:50 10/06/18 10:52 10/06/18 10:53 Temperature Temperature Source Sepsis Recent Fever Within 48 Hours Sepsis Action Taken by Nursing Pulse Rate 87 88 86 Pulse Rate [Apical] Pulse Rate from SpO2 Sensor 87 88 86 Pulse Rhythm [Apical] Pulse Strength [Apical] Respiratory Rate 16 16 15 Respiratory Effort / Characteristics Respiratory Depth Blood Pressure Blood Pressure [Left Arm] Blood Pressure Mean 114 Blood Pressure Mean [Left Arm] Pulse Oximetry 100 100 100 Oxygen Delivery Method Non-rebreather Oxygen Flow Rate 15 10/06/18 10:57 10/06/18 11:00 10/06/18 11:10 Temperature Temperature Source Sepsis Recent Fever Within 48 Hours Sepsis Action Taken by Nursing Pulse Rate 91 H 85 95 H Pulse Rate [Apical] Pulse Rate from SpO2 Sensor 91 H 85 95 H Pulse Rhythm [Apical] Pulse Strength [Apical] Respiratory Rate 18 15 23 Respiratory Effort / Characteristics Respiratory Depth Blood Pressure 137/82 156/108 H Blood Pressure [Left Arm] Blood Pressure Mean 100 124 Blood Pressure Mean [Left Arm] Pulse Oximetry 100 99 97 Oxygen Delivery Method Non-rebreather Non-rebreather Non-rebreather Oxygen Flow Rate 15 15 15 10/06/18 11:30 10/06/18 11:31 10/06/18 12:46 Temperature 36.9 C Temperature Source Oral Sepsis Recent Fever Within 48 Hours Sepsis Action Taken by Nursing Pulse Rate 94 H 91 H Pulse Rate [Apical] 85 Pulse Rate from SpO2 Sensor 94 H 91 H Pulse Rhythm [Apical] Pulse Strength [Apical] Respiratory Rate 20 16 21 Respiratory Effort / Characteristics Respiratory Depth Blood Pressure 144/90 H Blood Pressure [Left Arm] 169/65 H Blood Pressure Mean 108 Blood Pressure Mean [Left Arm] 99 Pulse Oximetry 100 100 99 Oxygen Delivery Method Non-rebreather Non-rebreather Nasal Cannula Oxygen Flow Rate 15 15 2 General: Altered middle-aged female, wearing supplemental Oxygen. HEENT: Normal cephalic atraumatic. When I open her eyes she looks downward. Oropharynx is pink with moist mucous membranes. No swelling of the mouth lips or tongue. Neck: Supple with a midline trachea. No meningeal signs or stiffness, no JVD or bruits. No Stridor. Chest: Mid 90s on supplemental Oxygen. Clear to auscultation bilaterally. No wheezes or rhonchi. No increased work of breathing. Heart: regular rate and rhythm. Abdomen: Soft nontender, nondistended without rebound guarding or rigidity. Extremities: No cyanosis clubbing or edema. No calf tenderness or assymetry Spine/Back. Non tender to palpation. No CVA tenderness Skin: Good turgor without rashes. Neurologic exam: No response to painful stimuli. Course 0907: Past medical records reviewed. The patient was evaluated in room A1, and a complete history and physical examination were performed. 0921: I discussed the patient's case with Dr. Owens Neurology who said that at this point we need to see what the CT shows and no TPA at this point. 0958: I discussed the patient's case with Gay Arroyo who will evaluate the patient for further management. 1013: They are doing a neuro exam on the patient. 1014: I discussed the patient's case with Dr. Lynn who said that this could be conversion disorder from the Propofol. 1021: I spoke with Dr. Lofton who said to give the patient aspirin and Keppra. 1044: Gay Livingston PA-C is going to see the patient. 1234: Dr. Lynn informed me that the patient is awake and talking now. Consultations Consultation #1: Dr. Owens Neurology Time: 09:21 Consultation #2: Gay Arroyo Time: 09:58 Consultation #3: Dr. Lynn Time: 10:14 Administered Medications Discontinued Medications Aspirin (Aspirin) 300 mg VT ONE ONE Stop: 10/06/18 10:24 Last Admin: 10/06/18 10:43 Dose: 300 mg Documented by: [id number] Levetiracetam 1,000 mg/ (Dextrose) 110 mls @ 440 mls/hr IV NOW STA Stop: 10/06/18 10:37 Last Infusion: 10/06/18 11:09 Dose: 0 mls/hr Documented by: [id number] Admin: 10/06/18 10:43 Dose: 440 mls/hr Documented by: [id number] Ioversol (Optiray 320 125ml) 119 ml IV ONCE PRN PRN Reason: Interaction Checking Stop: 10/10/18 09:22 Last Admin: 10/06/18 09:24 Dose: 119 ml Documented by: [id number] Medical Decision Making Differential Diagnosis The patient is a 43 year old female who presents to the ED with unre sponsiveness. Differential diagnosis includes CVA, medication overdose/side effects, seizure, infection, and anoxic brain injury. Medical Records Attestation: I reviewed the patient's medical records. Home Medications Current Medication List: was personally reviewed by me Laboratory Data Attestation: I reviewed the patient's lab results. Result diagrams: 10/06/18 09:38 10/06/18 09:38 Lab Results 10/06/18 10/06/18 10/06/18 Range/Units 09:12 09:38 09:38 WBC 4.44 L (4.8-10.8) K/uL RBC 3.87 L (4.2-5.4) M/uL Hgb 11.6 L (12.0-16.0) g/dL POC Hgb (12.0-16.0) g/dl Hct 34.4 L (37-47) % POC Hct (37-47) % MCV 88.9 (80-100) fL MCH 30.0 (25-34) pg MCHC 33.7 (32-36) g/dL RDW Std Deviation 38.4 (36.4-46.3) fL RDW Coeff of Kalina 12.0 (11.5-14.5) % Plt Count 197 (130-400) K/uL MPV 8.9 (7.4-10.4) fL Immature Gran % (Auto) 0.7 % Neut % (Auto) 44.1 % Lymph % (Auto) 43.7 % [place] % (Auto) 8.8 % Eos % (Auto) 2.5 % Baso % (Auto) 0.2 % Immature Gran # (Auto) 0.03 H (0.00-0.02) K/uL Neut # (Auto) 1.96 (1.4-6.5) K/uL Lymph # (Auto) 1.94 (1.2-3.4) K/uL [place] # (Auto) 0.39 (0.11-0.59) K/uL Eos # (Auto) 0.11 (0-0.5) K/uL Baso # (Auto) 0.01 (0-0.2) K/uL PT 10.3 (9.0-12.0) Seconds INR 1.0 (0.9-1.1) APTT 23.9 (21.0-31.0) Seconds PTT Ratio 0.9 ABG pH (7.35-7.45) ABG pCO2 (35-46) mmHg ABG pO2 (80-95) mm/Hg ABG HCO3 (19-24) mmol/L ABG O2 Saturation (90-95) % ABG Base Excess (-9-1.8) mEq/L Chris Test (Pos) Barometric Pressure mm/Hg Oxygen Given POC Sodium (135-144) mEq/L Sodium (136-145) mmol/L POC Potassium (3.3-5.0) mEq/L Potassium (3.5-5.1) mmol/L POC Chloride (101-112) mEq/L Chloride (98-107) mmol/L Carbon Dioxide (21-32) mmol/L POC Total CO2 (24-31) mEq/l Anion Gap (3-11) POC Anion Gap (16-25) mmol/L POC BUN (7-18) mg/dl BUN (7-18) mg/dl Creatinine (0.6-1.2) mg/dl POC Creatinine (0.6-1.3) mg/dl Est Cr Clr Drug Dosing ml/min Est GFR ( Amer) Est GFR (Non-Af Amer) BUN/Creatinine Ratio (10-20) Glucose (70-99) mg/dl POC Glucose 152 H (70-99) POC Glucose (other) (70-99) mg/dl Calcium (8.5-10.1) mg/dl POC Ioniz Calcium [place] (1.12-1.32) mmol/l Magnesium (1.8-2.4) mg/dl Total Bilirubin (0.2-1) mg/dl AST (15-37) U/L ALT (12-78) U/L Alkaline Phosphatase (45-117) U/L POC Troponin I (0-0.045) ng/ml Troponin I (0-0.045) ng/ml Total Protein (6.4-8.2) gm/dl Albumin (3.4-5.0) gm/dl Globulin (2.5-4.0) gm/dl Albumin/Globulin Ratio (0.9-2) Blood Type Antibody Screen 10/06/18 10/06/18 10/06/18 Range/Units 09:38 09:38 09:40 WBC (4.8-10.8) K/uL RBC (4.2-5.4) M/uL Hgb (12.0-16.0) g/dL POC Hgb 10.5 L (12.0-16.0) g/dl Hct (37-47) % POC Hct 31 L (37-47) % MCV (80-100) fL MCH (25-34) pg MCHC (32-36) g/dL RDW Std Deviation (36.4-46.3) fL RDW Coeff of Kalina (11.5-14.5) % Plt Count (130-400) K/uL MPV (7.4-10.4) fL Immature Gran % (Auto) % Neut % (Auto) % Lymph % (Auto) % [place] % (Auto) % Eos % (Auto) % Baso % (Auto) % Immature Gran # (Auto) (0.00-0.02) K/uL Neut # (Auto) (1.4-6.5) K/uL Lymph # (Auto) (1.2-3.4) K/uL [place] # (Auto) (0.11-0.59) K/uL Eos # (Auto) (0-0.5) K/uL Baso # (Auto) (0-0.2) K/uL PT (9.0-12.0) Seconds INR (0.9-1.1) APTT (21.0-31.0) Seconds PTT Ratio ABG pH (7.35-7.45) ABG pCO2 (35-46) mmHg ABG pO2 (80-95) mm/Hg ABG HCO3 (19-24) mmol/L ABG O2 Saturation (90-95) % ABG Base Excess (-9-1.8) mEq/L Chris Test (Pos) Barometric Pressure mm/Hg Oxygen Given POC Sodium 137 (135-144) mEq/L Sodium 138 (136-145) mmol/L POC Potassium 4.1 (3.3-5.0) mEq/L Potassium 4.1 (3.5-5.1) mmol/L POC Chloride 99 L (101-112) mEq/L Chloride 106 (98-107) mmol/L Carbon Dioxide 29 (21-32) mmol/L POC Total CO2 25 (24-31) mEq/l Anion Gap 3.0 (3-11) POC Anion Gap 18.0 (16-25) mmol/L POC BUN 11 (7-18) mg/dl BUN 12 (7-18) mg/dl Creatinine 0.63 (0.6-1.2) mg/dl POC Creatinine 0.6 (0.6-1.3) mg/dl Est Cr Clr Drug Dosing 117.6 ml/min Est GFR ( Amer) 128.2 Est GFR (Non-Af Amer) 110.6 BUN/Creatinine Ratio 19.0 (10-20) Glucose 152 H (70-99) mg/dl POC Glucose (70-99) POC Glucose (other) 153 H (70-99) mg/dl Calcium 7.6 L (8.5-10.1) mg/dl POC Ioniz Calcium [place] 1.14 (1.12-1.32) mmol/l Magnesium 1.9 (1.8-2.4) mg/dl Total Bilirubin 0.2 (0.2-1) mg/dl AST 7 L (15-37) U/L ALT 11 L (12-78) U/L Alkaline Phosphatase 61 (45-117) U/L POC Troponin I (0-0.045) ng/ml Troponin I < 0.015 (0-0.045) ng/ml Total Protein 5.8 L (6.4-8.2) gm/dl Albumin 2.6 L (3.4-5.0) gm/dl Globulin 3.2 (2.5-4.0) gm/dl Albumin/Globulin Ratio 0.8 L (0.9-2) Blood Type A Positive Antibody Screen NEGATIVE 10/06/18 10/06/18 10/06/18 Range/Units 09:41 09:59 12:33 WBC (4.8-10.8) K/uL RBC (4.2-5.4) M/uL Hgb (12.0-16.0) g/dL POC Hgb (12.0-16.0) g/dl Hct (37-47) % POC Hct (37-47) % MCV (80-100) fL MCH (25-34) pg MCHC (32-36) g/dL RDW Std Deviation (36.4-46.3) fL RDW Coeff of Kalina (11.5-14.5) % Plt Count (130-400) K/uL MPV (7.4-10.4) fL Immature Gran % (Auto) % Neut % (Auto) % Lymph % (Auto) % [place] % (Auto) % Eos % (Auto) % Baso % (Auto) % Immature Gran # (Auto) (0.00-0.02) K/uL Neut # (Auto) (1.4-6.5) K/uL Lymph # (Auto) (1.2-3.4) K/uL [place] # (Auto) (0.11-0.59) K/uL Eos # (Auto) (0-0.5) K/uL Baso # (Auto) (0-0.2) K/uL PT (9.0-12.0) Seconds INR (0.9-1.1) APTT (21.0-31.0) Seconds PTT Ratio ABG pH 7.32 L (7.35-7.45) ABG pCO2 51 H (35-46) mmHg ABG pO2 245 H (80-95) mm/Hg ABG HCO3 26 H (19-24) mmol/L ABG O2 Saturation 99.7 H (90-95) % ABG Base Excess -0.8 (-9-1.8) mEq/L Chris Test Pos (Pos) Barometric Pressure 739.1 mm/Hg Oxygen Given 15L POC Sodium (135-144) mEq/L Sodium (136-145) mmol/L POC Potassium (3.3-5.0) mEq/L Potassium (3.5-5.1) mmol/L POC Chloride (101-112) mEq/L Chloride (98-107) mmol/L Carbon Dioxide (21-32) mmol/L POC Total CO2 (24-31) mEq/l Anion Gap (3-11) POC Anion Gap (16-25) mmol/L POC BUN (7-18) mg/dl BUN (7-18) mg/dl Creatinine (0.6-1.2) mg/dl POC Creatinine (0.6-1.3) mg/dl Est Cr Clr Drug Dosing ml/min Est GFR ( Amer) Est GFR (Non-Af Amer) BUN/Creatinine Ratio (10-20) Glucose (70-99) mg/dl POC Glucose 187 H (70-99) POC Glucose (other) (70-99) mg/dl Calcium (8.5-10.1) mg/dl POC Ioniz Calcium [place] (1.12-1.32) mmol/l Magnesium (1.8-2.4) mg/dl Total Bilirubin (0.2-1) mg/dl AST (15-37) U/L ALT (12-78) U/L Alkaline Phosphatase (45-117) U/L POC Troponin I < 0.03 (0-0.045) ng/ml Troponin I (0-0.045) ng/ml Total Protein (6.4-8.2) gm/dl Albumin (3.4-5.0) gm/dl Globulin (2.5-4.0) gm/dl Albumin/Globulin Ratio (0.9-2) Blood Type Antibody Screen 10/06/18 Range/Units 14:22 WBC (4.8-10.8) K/uL RBC (4.2-5.4) M/uL Hgb (12.0-16.0) g/dL POC Hgb (12.0-16.0) g/dl Hct (37-47) % POC Hct (37-47) % MCV (80-100) fL MCH (25-34) pg MCHC (32-36) g/dL RDW Std Deviation (36.4-46.3) fL RDW Coeff of Kalina (11.5-14.5) % Plt Count (130-400) K/uL MPV (7.4-10.4) fL Immature Gran % (Auto) % Neut % (Auto) % Lymph % (Auto) % [place] % (Auto) % Eos % (Auto) % Baso % (Auto) % Immature Gran # (Auto) (0.00-0.02) K/uL Neut # (Auto) (1.4-6.5) K/uL Lymph # (Auto) (1.2-3.4) K/uL [place] # (Auto) (0.11-0.59) K/uL Eos # (Auto) (0-0.5) K/uL Baso # (Auto) (0-0.2) K/uL PT (9.0-12.0) Seconds INR (0.9-1.1) APTT (21.0-31.0) Seconds PTT Ratio ABG pH (7.35-7.45) ABG pCO2 (35-46) mmHg ABG pO2 (80-95) mm/Hg ABG HCO3 (19-24) mmol/L ABG O2 Saturation (90-95) % ABG Base Excess (-9-1.8) mEq/L Chris Test (Pos) Barometric Pressure mm/Hg Oxygen Given POC Sodium (135-144) mEq/L Sodium (136-145) mmol/L POC Potassium (3.3-5.0) mEq/L Potassium (3.5-5.1) mmol/L POC Chloride (101-112) mEq/L Chloride (98-107) mmol/L Carbon Dioxide (21-32) mmol/L POC Total CO2 (24-31) mEq/l Anion Gap (3-11) POC Anion Gap (16-25) mmol/L POC BUN (7-18) mg/dl BUN (7-18) mg/dl Creatinine (0.6-1.2) mg/dl POC Creatinine (0.6-1.3) mg/dl Est Cr Clr Drug Dosing ml/min Est GFR ( Amer) Est GFR (Non-Af Amer) BUN/Creatinine Ratio (10-20) Glucose (70-99) mg/dl POC Glucose 193 H (70-99) POC Glucose (other) (70-99) mg/dl Calcium (8.5-10.1) mg/dl POC Ioniz Calcium [place] (1.12-1.32) mmol/l Magnesium (1.8-2.4) mg/dl Total Bilirubin (0.2-1) mg/dl AST (15-37) U/L ALT (12-78) U/L Alkaline Phosphatase (45-117) U/L POC Troponin I (0-0.045) ng/ml Troponin I (0-0.045) ng/ml Total Protein (6.4-8.2) gm/dl Albumin (3.4-5.0) gm/dl Globulin (2.5-4.0) gm/dl Albumin/Globulin Ratio (0.9-2) Blood Type Antibody Screen Imaging Data Radiologist's Impression: Radiology results as stated below per my review and the radiologist's interpretation: HEAD & NECK CTA HISTORY: Altered mental status. TECHNIQUE: Multiaxial CT images of the head were performed following the intravenous administration of contrast to evaluate the major cerebral vessels. Multiaxial CT images of the neck were also performed following the intravenous administration of contrast to evaluate the major cervical vessels. Maximum intensity projection images were also obtained. A dose lowering technique was utilized adhering to the principles of ALARA. COMPARISON: Head CT 10/06/2018. FINDINGS: A right-sided nasopharyngeal airway is noted. Visualized intracranial internal carotid arteries, distal vertebral arteries, and basilar artery are widely pa tent. There is no significant stenosis, occlusion, or aneurysm seen within the bilateral ACAs, MCAs, or [place]. The major dural venous sinuses are patent. Moderate mucosal thickening within the left maxillary sinus and left ethmoid air cells. The aortic arch and proximal great vessels are widely patent. There is no significant stenosis, occlusion, or dissection identified within the bilateral common carotid, internal carotid, or vertebral arteries. Patchy and linear densities within the upper lobes favor atelectasis. IMPRESSION: 1. No significant stenosis, occlusion, or aneurysm within the [place]. 2. No significant stenosis, occlusion, or dissection identified within the carot id or vertebral arteries. 3. Patchy and linear densities within the upper lobes are nonspecific but favor atelectasis. A pneumonia could also have a similar appearance. 4. Sinus disease as described above. Electronically signed by: Jersey Schuler M.D. 10/06/2018 9:[address] head/brain wo con CLINICAL HISTORY: 43 years-old Female with Stroke evaluation . Acute strokelike symptoms TECHNIQUE: Multiple axial CT images of the head were obtained without contrast. A dose lowering technique was utilized adhering to the principles of ALARA. CT DOSE: 537.48 mGy.cm COMPARISON: CT head 01/28/2013. FINDINGS: No acute intracranial hemorrhage, midline shift, intracranial mass, hydrocephalus, territorial ischemia or abnormal extra-axial collection. The calvarium is intact. Moderate mucosal thickening about the left maxillary sinus with mild mucosal thickening of the right maxillary sinus and mild to moderate mucosal thickening of the ethmoid air cells. Mastoid air cells are clear. Soft tissues are unremarkable. A tube noted about the right naris. IMPRESSION: No acute intracranial abnormality. The above report was generated using voice recognition software. It may contain grammatical, syntax or spelling errors. Electronically signed by: Darius Butts M.D. 10/06/2018 9:32 AM XR chest 1V portable HISTORY: 43 years-old Female altered loc acutely altered mental status COMPARISON: [facility] 01/04/2014 TECHNIQUE: Portable AP view the chest FINDINGS: Cardiac silhouette appears be upper limits of normal in size. Lungs are hypoinflated with bronchovascular crowding. Mild right hemidiaphragm elevation with subsegmental bibasilar opacities. Bilateral interstitial coarsening. There is no pneumothorax or large pleural effusion. There is a linear metallic density structure overlying the medial right lung base which may be external to the patient. Bones of the chest appear grossly intact. IMPRESSION: 1. Hypoinflation with bronchovascular crowding and mild right hemidiaphragmatic elevation. 2. Bibasilar opacities are suggestive of atelectasis, pneumonitis could have a similar appearance. The above report was generated using voice recognition software. It may contain grammatical, syntax or spelling errors. Electronically signed by: Darius Butts M.D. 10/06/2018 10:49 AM ECG Data Attestation: I personally reviewed and interpreted this ECG as follows: Indication: altered mental status Rate (beats per minute): 81 Rhythm: normal sinus Findings: + other (normal intervals); no PAC, no PVC, no ST depression, no ST elevation, no acute ischemic change and no ectopy Blood Pressure Blood Pressure Findings: Normal blood pressure MDM Narrative This patient comes in as described above. She was placed in room A1. Our charge nurse told me about her prior to arrival were all awaiting her arrival. She has become unresponsive after having surgery at an outpatient surgery center. Multiple doses of Narcan did not wake her up. Upon arrival, she is on supplemental oxygen maintaining her oxygen saturation. she is normotensive and has stable vital signs. She has no movement neurologically except for when I open her eyes she looks downwards. This is not persistent and the eyes do move in other directions, I do not think it is a fixed gaze preference. Certainly the concern would be for possible stroke versus seizure versus medication side effect are the main differential initially. Based on this, I did call a stroke alert to expedite her care. CAT scan of her head was unremarkable. CT of the head and neck was unremarkable. EKG shows no acute ischemic changes or ectopy. She had no electrolyte or metabolic abnormality as I talked her at length and she has had no illness prior to this. I talked to the stroke neurologist twice on the phone. At this point, she does not feel that the patient is a TPA candidate and I agree at this point. I do not think is likely a stroke and postop the TPA could have more harm than good. She did recommend giving her rectal aspirin which I did as well as loading with IV Keppra. This was given as well and the concern that this could be a seizure. I did discuss the case at length also with our attendant lodging facilities Dr. Martin. He felt was most likely related to the anesthesia and was more of a conversion disorder. The patient has remained stable I do think she needs to go to the ICU for further treatment and evaluation she and she may need an MRI and further neurologic workup. The patient is in agreement the plan and she was admitted to our intensive care unit. Impression & Plan Altered mental status, Seizure disorder, History of carpal tunnel surgery, Anesthesia complication, Conversion disorder Critical Care Time I have personally spent greater than 60 minutes of critical care time in the direct management of this patient. This includes bedside care, interpretation of diagnostic studies, and testing, discussion with consultants, patient, and family members, and other required patient management activities. This 60 minutes is in excess of all separately billable procedures. Critical Care Time: Yes Total Critical Care Time: 60 Discharge Plan Visit Data *Final* Discharge Date/Time: 10/06/18 11:48 Chief Complaint: Unresponsive Stated Complaint: unresponsive ED Provider: Manuel Medina Discharge Problem: Altered mental status, Seizure disorder, History of carpal tunnel surgery, Anesthesia complication, Conversion disorder Patient Disposition: Admitted As Inpatient Discharge Instructions Interventions: ED Discharge Assessment Last Done: 10/06/18 11:48 Discharge Problem: Altered mental status Qualifiers: Altered mental status type: unspecified Qualified Code(s): R41.82 - Altered mental status, unspecified Anesthesia complication Qualifiers: Encounter type: initial encounter Qualified Code(s): T41.45XA - Adverse effect of unspecified anesthetic, initial encounter The scribe's documentation has been prepared under my direction and personally reviewed by me in its entirety. I confirm that the note above accurately re flects all work, treatment, procedures, and medical decision making performed by me.
[2018-10-06] MEDS ORDERED: INFLUENZA VIRUS QUAD VACCINE 0.5 ML SYR IM ONE (16:00)
[2018-10-06] MEDS ORDERED: INFLUENZA ADMINISTRATION CHARGE ONE (16:00)
[2018-10-06] MEDS: INSULIN ASPART 100 UNITS/ML 3 ML PEN SC SCH ×2 (17:04→21:53)
[2018-10-06] MEDS: ACETAMINOPHEN 325 MG TAB PO PRN (17:04)
[2018-10-06 17:25] LABS: Amphetamines+Metham, Urine Neg (Neg); Barbiturates, Urine Neg (Neg); Benzodiazepine, Urine Pos (Neg); Cocaine, Urine Neg (Neg); MDMA (Ecstacy), Urine Neg (Neg); Methadone, Urine Neg (Neg); Opiate, Urine Neg (Neg); Phencyclidine, Urine Neg (Neg)
[2018-10-06] MEDS ORDERED: GADOBUTROL 65ML VIAL IV PRN (18:52)
--- NOTE | 2018-10-06 18:59 | Magnetic Resonance Report ---
MR brain wo/w con CLINICAL HISTORY: unresponsive mental status change COMPARISON STUDY: No previous studies for comparison. TECHNIQUE: Utilizing a 1.5 Sugar magnet and dedicated coil, multiplanar, multiecho imaging of the br ain was performed pre and postcontrast administration. IV administration of 8 mL of Gadavist contras t was uneventful. FINDINGS: Diffusion-weighted images show no evidence for an acute ischemic event. Signal characterist ics of the cerebellar as well as cerebral hemispheres are unremarkable. Ventricular system is midline . No abnormal postcontrast enhancement. Moderate mucosal thickening left maxillary sinus. IMPRESSION: 1. Normal MRI of the brain. 2. No evidence for an acute ischemic event. 3. Moderate mucosal thickening left maxillary sinus. The above report was generated using voice recognition software. It may contain grammatical, syntax or spelling errors. Electronically signed by: Gabriele Flores M.D. 10/06/2018 6:58 PM
[2018-10-06] MEDS ORDERED: OXYCODONE/ACETAMINOPHEN 5mg/325mg TAB PO ONE (19:14)
[2018-10-06] MEDS ORDERED: LACOSAMIDE 50 MG TABLET PO SCH (21:00)
[2018-10-06] MEDS ORDERED: INSULIN GLARGINE SOLOSTAR 100 UNITS/ML 3 ML PEN SQ SCH (21:00)
[2018-10-06] MEDS ORDERED: GABAPENTIN 600 MG TAB PO SCH (21:00)
[2018-10-06] MEDS: DIVALPROEX DELAY RELEASE 500 MG TAB PO SCH (22:16)
[2018-10-06] MEDS: LACOSAMIDE 50 MG TABLET PO SCH (22:23)
[2018-10-07] MEDS: ACETAMINOPHEN 325 MG TAB PO PRN ×2 (03:54→15:04)
[2018-10-07] MEDS: GABAPENTIN 600 MG TAB PO SCH ×2 (06:29→13:36)
[2018-10-07 07:20] LABS: Basophils # (auto) 0.02 K/uL (0-0.2); Basophils % (auto) 0.3 %; Eosinophils # (auto) 0.16 K/uL (0-0.5); Eosinophils % (auto) 2.5 %; Hematocrit (blood only) 35.9 % (37-47); Hemoglobin 12.1 g/dL (12.0-16.0); Immature Granulocytes # (auto) 0.03 K/uL (0.00-0.02); Immature Granulocytes % (auto) 0.5 %; Lymphocytes # (auto) 2.89 K/uL (1.2-3.4); Lymphocytes % (auto) 44.3 %; Mean Corpuscular Hgb Conc 33.7 g/dL (32-36); Mean Corpuscular Volume 89.5 fL (80-100); Mean Platelet Volume 8.9 fL (7.4-10.4); Monocytes # (auto) 0.44 K/uL (0.11-0.59); Monocytes % (auto) 6.7 %; Neutrophils # (auto) 2.99 K/uL (1.4-6.5); Neutrophils % (auto) 45.7 %; Platelet Count 205 K/uL (130-400); RDW Coefficient of Variation 12.1 % (11.5-14.5); RDW Standard Deviation 39.4 fL (36.4-46.3); Red Blood Count 4.01 M/uL (4.2-5.4); White Blood Count 6.53 K/uL (4.8-10.8)
[2018-10-07 07:23] LABS: Estimated Average Glucose 194 mg/dl; Hemoglobin A1C 8.4 % (4.5-5.6)
[2018-10-07 08:04] LABS: BUN Creatinine Ratio 26.3 (10-20); Calcium 8.2 mg/dl (8.5-10.1); Creatinine Clr Calc Pharmacy 139.3 ml/min; Est GFR (Non-African American) 113.1; Potassium 3.8 mmol/L (3.5-5.1)
[2018-10-07 08:05] LABS: Phosphorus 3.7 mg/dl (2.5-4.9)
[2018-10-07] MEDS: DIVALPROEX DELAY RELEASE 500 MG TAB PO SCH (08:44)
[2018-10-07] MEDS: INSULIN ASPART 100 UNITS/ML 3 ML PEN SC SCH ×3 (08:46→16:30)
[2018-10-07] MEDS ORDERED: ATORVASTATIN 10 MG TAB PO SCH (09:00)
[2018-10-07] MEDS ORDERED: PANTOprazole 40 MG TAB PO SCH (09:00)
[2018-10-07] MEDS: LACOSAMIDE 50 MG TABLET PO SCH (09:42)
--- NOTE | 2018-10-07 15:25 | Discharge Summary ---
Date of Service October 07, 2018 Admission HPI Per Admitting Provider Pt is 43 y/o F with PMH diabetes on insulin, dyslipidemia, seizure disorder, pseudoseizure, recurrent headaches presented to ER from outpatient surgical center for apnea and unresponsiveness. Patient had right carpal tunnel surgery today. There is reported she had propofol, Versed, fentanyl. Reported patient woke up after procedure and then became apneic and unresponsive. Reported was given Narcan without any improvement. Reported that patient then had SBP 200 and was given labetalol and had BSG of 160s and was given half amp of dextrose and sent to ER. In ER arrival patient was unresponsive to painful stimuli, on nonrebreather with respirations of 16, and sats dropped to 80s off of nonrebreather with respirations of 9, BP: 137/70, P: 87. CTA head and neck unremarkable. Stroke alert was called and tele neurologist did not think was acute stroke and recommended aspirin and Keppra. Patient's reports that he believes patient has been taking her medications. He states he thinks his last seizure episode was approximately 6 months ago. He reports her normal seizure episodes are where she blacks out and has movements of body and last for approximately 20 minutes without loss control of bowel or bladder. He states in the past when this is occurred he has pinched her and she has responded to painful stimuli. Outpatient records reviewed and report patient with diagnosis of pseudoseizures on previous neuro workup. She is on Depakote for history of headaches. Patient's reports now patient follows with neurologist in [place] Dr. Long and patient is on Vimpat. Assessment reports approximately 1 month ago patient had outpatient surgery for left carpal tunnel and did not have any problems with anesthesia. He does not think that she drinks alcohol or uses any other drugs other than her prescriptions. He thinks that she took her morning medicines today. denies any recent illnesses or injuries with pt. Principal Diagnosis UNRESPONSIVENESS -DUE TO MEDICATIONS , SYMPTOM HAS RESOLVED Discharge Exam GENERAL: No sign of distress, HEENT: Sclera nonicteric, pink-purple bilateral equal reactive to light extraocular muscle intact Normal oral mucosa, neck: No JVD, no thyromegaly, trachea midline Lungs: Clear to auscultate, no wheeze or rales Cardiovascular: Regular S1 and S2, no murmur or gallop, no JVD, no lower extremity edema Abdomen: Soft, nontender, bowel sounds active, no hepatosplenomegaly Extremities: No rash or deformity, normal joint, Neuro: No focal neurological deficit, no dysarthria, no facial droop Psych: Alert awake oriented x3: Euthymic Skin: No rash LYMPH NODES: No cervical lymphadenopathy Discharge Data Allergies Allergy/AdvReac Type Severity Reaction Status Date / Time niacin Allergy Unknown HIVES Verified 10/06/18 10:33 nortriptyline Allergy Unknown UNKOWN Verified 10/06/18 10:33 RXN, FROM PREOP ORDER aspirin AdvReac Unknown bloody nose Verified 10/06/18 10:33 Consultations 10/06/18 09:53 ED Decision to Admit Stat 10/06/18 14:04 Consult Case Management - Discharge Planning Routine Consult Neurology Routine Ordered Studies 10/06/18 09:14 CT head/brain wo con Stat 10/06/18 09:17 CT angio head w con Stat CT angio neck with con Stat 10/06/18 11:10 MR brain wo/w con Urgent Hospital Course (1) Hypoxia: (2) Unresponsive: symptom has completely resolved alert , Pt presented to ER from outpatient surgical center for apnea and unresponsiveness. Patient had right carpal tunnel surgery today. It is reported she had propofol, Versed, fentanyl and woke up after procedure and then became apneic and unresponsive. Reported was given Narcan without any improvement. Reported that patient then had SBP 200 and was given labetalol and had BSG of 160s and was given half amp of dextrose and sent to ER. Upon ER arrival patient was unresponsive to painful stimuli, on nonrebreather with respirations of 16, and sats dropped to 80s off of nonrebreather with respirations of 9, BP: 137/70, P: 87. CTA head and neck unremarkable. Stroke alert was called and tele neurologist did not think was acute stroke and recommended aspirin and Keppra. possible medication induced, no evidence of nerologicl deficit -MRI brain-negative -Neurology consult appreciate recommendations stable to be out pt follow up with neurolo at [facility] (3) Seizure disorder: (4) Pseudoseizure: Outpatient records reviewed and report patient with diagnosis of pseudoseizures on previous neuro workup. Patient's reports now patient follows with neurologist in [place] Dr. Long and patient is on Vimpat. thinks last seizure was at least 6 months ago -monitor -seizure precautions -pending depakote level mental status improved to abseline (5) Diabetes: A1c: 8.0 on 11/2017. On Lantus and Novolog sliding scale at home Reported pt BSG after surgery this morning was in 160's and she was given 1/2 amp dextrose at that time -Novolog Lantus sliding scale per protocol - (6) Dyslipidemia: -if continued alertness will resume home meds (7) Recurrent headache: On Depakote for history of headaches -pending depakote level DVT Prophylaxis -SCDs Follows with Dr Beard - [place] for routine care stable to be discharged home Total Time Total Time Spent Total Time Spent (In Minutes): 35 MINS Total Time Includes: Examination of the Patient, Discharge Planning and Medication Reconciliation Discharge Plan Discharge Items Patient Disposition: Home - Self-Care Reason For Visit: UNRESPONSIVE,HYPOXIA Discharge Diagnosis: UNRESPONSIVENESS -DUE TO MEDICATIONS , SYMPTOM HAS RESOLVED Discharge Goals: Decrease discomfort Activity: Resume your previous activity Non-emergency contact: Primary Care Provider Call non-emergency contact if: you have any medication questions Follow-up/Referrals: Faheem Beard D.O. [Primary Care Provider] - 10/12/18 10:00 am (HOSPITAL FOLLOW UP IN A WEEK , OFFICE WILL CALL WITH APPOINTMENT ) Diet: Regular Addtl Provider Instructions: FOLLOW UP WITH NEUROLOGY AT [facility] Prescriptions: Continued multivitamin Tablet 1 tab PO DAILY RF: 0 gabapentin 600 mg tablet 600 mg PO UD RF: 0 ondansetron HCl [Zofran] 4 mg Tablet 4 mg PO DIRECTED PRN (Reason: Headache) RF: 0 rizatriptan [Maxalt] 10 mg Tablet 10 mg PO DIRECTED RF: 0 divalproex 500 mg tablet,delayed release (DR/EC) 500 mg PO BID RF: 0 valacyclovir 500 mg tablet 500 mg PO BID RF: 0 loratadine 10 mg Tablet 10 mg PO DAILY RF: 0 Vimpat 150 mg tablet 150 mg PO BID RF: 0 riboflavin (vitamin B2) 400 mg Tablet 1,200 mg PO DAILY RF: 0 atorvastatin 10 mg Tablet 10 mg PO DAILY RF: 0 Novolog Flexpen U-100 Insulin 100 unit/mL (3 mL) Insulin Pen 1 unit subcut UD RF: 0 esomeprazole magnesium [Nexium] 40 mg Capsule,Delayed Release(Dr/Ec) 40 mg PO DAILY RF: 0 insulin glargine 100 unit/mL (3 mL) Insulin Pen 55 unit SUBCUT HS RF: 0 Stand-Alone Forms: [facility] Discharge Orders: Discharge Order (Routine); Ordered 10/07/18 Ordered By: Hue López Admission Data Admit Date/Time: 10/06/18 11:29 Attending Provider: Hue López Admit Provider: Alfa Reynaga Primary Care Provider: Faheem Beard V. Other Providers: Isabel Farr ; Delvis Stiles Service: Medical Other Interventions: Discharge Summary Assessment (RN) Last Done: 10/07/18 16:21
[2018-10-07 15:41] VITALS: TEMP 97.5
[2018-10-07 16:24] VITALS: BP 144/77; PULSE 82; O2SAT 94
[2018-10-10 21:37] LABS: 7-Aminoclonaz, Confirm NEGATIVE NG/ML (CUTOFF=25); Hydro-Alp Ur, GC/MS NEGATIVE NG/ML (CUTOFF=25); Hydroxyethylflurazepam, Conf NEGATIVE NG/ML (CUTOFF=50); Hydroxytriazolam NEGATIVE NG/ML (CUTOFF=50); Lorazepam, Ur GC/MS NEGATIVE NG/ML (CUTOFF=50); Nordiazepam, Confirm NEGATIVE NG/ML (CUTOFF=50); Oxazepam Ur, GC/MS NEGATIVE NG/ML (CUTOFF=50); Temazepam, Confirm NEGATIVE NG/ML (CUTOFF=50)
== END 2018-10-07 16:30 | disposition home or self-care (01) | DRG 100 ==
LOC: ED 09:06 → 1E 11:29 → 2W 11:48